=== PATIENT | male | born 1970 | race Caucasian/White ===

== ENCOUNTER 2021-01-27 10:21 | Emergency (ER) | payer MEDICAID ==
[~2021-01-27] VITALS: Ht 190.5 cm; Wt 90.9 kg
[2021-01-27 10:24] VITALS: BP 174/101
== END 2021-01-27 14:52 | disposition left against medical advice (07) ==
LOC: ER 10:21
DX: M79.602 Pain in left arm (principal); M54.2 Cervicalgia; R05.9 Cough, unspecified; Z53.21 Procedure and treatment not carried out due to patient leaving prior to being seen by health care provider

== ENCOUNTER 2023-07-27 12:28 | Outpatient (CLI) | payer MEDICAID | END 2023-07-27 23:59 | disposition home or self-care (01) | LOC: RAD 12:28 | PROVIDERS: ATTEND Neurological Surgery | DX: M43.12 Spondylolisthesis, cervical region (principal); M54.2 Cervicalgia; Z98.1 Arthrodesis status; M48.02 Spinal stenosis, cervical region | CPT/HCPCS: 72040 ==